=== PATIENT | male | born 1985 | race African-American/Black ===

== ENCOUNTER 2016-08-26 23:56 | Emergency (ER) | payer OTHER ==
[2016-08-27 02:12] VITALS: BP 115/64
== END 2016-08-27 01:05 | disposition other institution (70) ==
LOC: ED 23:56
DX: Z02.89 Encounter for other administrative examinations (principal); S00.81XA Abrasion of other part of head, initial encounter; S20.311A Abrasion of right front wall of thorax, initial encounter; S09.90XA Unspecified injury of head, initial encounter; W51.XXXA Accidental striking against or bumped into by another person, initial encounter; Y93.89 Activity, other specified; Y99.8 Other external cause status; Y92.89 Other specified places as the place of occurrence of the external cause